=== PATIENT | female | born 1955 | race Caucasian/White ===

== ENCOUNTER 2019-08-01 12:52 | Emergency (ER) | payer MEDICARE ==
--- OUTSIDE RECORDS SUMMARY | 2019-08-01 13:01 | XMS REPORT | Continuity of Care Document ---
:1955 External Reference #:[id number] Author Name Tammie Guy NP (transmitted by agent of provider Wendy Dhillon) Address [address] [address] Care Team Providers Name Role Phone Mitra Bah MD - Family Medicine Care Team Information Customer Service Technician Problems Active Problems Provider Date Disturbance in sleep behavior Ira Lima MD Onset: 02/16/2016 Chronic respiratory failure Ira Lima MD Onset: 02/16/2016 Obesity Ira Lima MD Onset: 02/16/2016 Dyspnea Ira Lima MD Onset: 02/16/2016 Anemia Ira Lima MD Onset: 02/16/2016 Hypoxemia Ira Lima MD Onset: 05/06/2016 Social History Type Date Description Comments Sex Unknown Tobacco Use Start: Unknown Quit January ETOH Use Denies alcohol use Tobacco Use Start: Unknown End: Patient is a former Unknown smoker Recreational Drug Use Denies Drug Use Smoking Was 2PPD smoker for 45 years Smoking Status Reviewed: 07/30/19 Patient is a former smoker Exercise Type/Frequency Does not exercise Allergies, Adverse Reactions, Alerts Active Allergies Reaction Severity Comments Date Penicillin hives 04/12/2014 Wellbutrin 02/16/2016 Trelegy Increased sob 10/07/2018 Medications Active Medications SIG Qnty Indications Ordering Date Provider Oxy Mask Pls provide pt 2units R09.02 Ira Lima, 06/23/2019 with Oxy mask Mucinex 1 tablet every 12 30tabs J44.1 Joanne 06/01/2019 600mg Tablets hours as needed YODIT Elise ER 12HR Oxygen please provide 1units J44.9 Joanne 12/24/2018 [facility] portable o2 YODIT Elise concentrator, pls use o2 at 2-3L/min at rest and 4L with exertion Breo Ellipta 1 puff inhaled 60units Ira Lima, 10/26/2018 daily 100-25mcg/Inh Aerosol Digox 1 by mouth six 90tabs Tammie Guy, 08/14/2018 250mcg Tablets days a week [employer] OPERATIONS ASSOCIATE Flutter use as instructed 1units J43.9 Ira Lima, 11/21/2016 Device twice a day Metoprolol Tartrate 1/2 by mouth twice 90tabs Celio Palmer 08/23/2016 a day Jayla Velez 25mg Tablets Vitamin B12 1 by mouth twice a Unknown 05/03/2016 Tablets day Senna-S 2 by mouth every Unknown 02/15/2016 8.6-50mg night at bedtime Tablets Ventolin HFA 2 puffs by mouth 24gm Joanne 02/15/2016 four times a day YODIT Elise 108(90Base) mcg/Act as needed Aerosol Paroxetine HCL 1 tablet by mouth Unknown 40mg twice daily Tablets Myrbetriq 1 Tablet by mouth Unknown 25mg daily Tablets ER 24HR Azelastine HCL 2 sprays each Unknown (Nasal) nostril twice Solution daily. Unsure of strength Cetirizine 1 tablet by mouth Unknown Tablets every hs Unsure of dose Trazodone HCL 1-3 tablets by Unknown 50mg mouth at hs Tablets Clonazepam 2 tabs 3x daily as Unknown 1mg needed Tablets Dispers Esomeprazole 1 by mouth every Unknown 40mg day Capsules DR Albuterol Sulfate 1 vial via 225ml Ira Janie, nebulizer 4 times (2.5mg/3ML) 0.083% daily as needed Nebulizer History Medications Prednisone 2 tab daily 21tabs J44.1 Joanne 06/01/2019 - 5mg Tablets for 1 week, YODIT Elise 06/22/2019 then 1 tab daily for 1 week Doxycycline 1 tab twice 14tabs J44.1 Joanne 06/01/2019 - Monohydrate daily for 1 Gosia, [employer]PERATIONS ASSOCIATE 06/22/2019 100mg week Tablets Medications Administered in Office Medication SIG Qnty Indications Ordering Provider Date Inj, Regadenoson, 0.1 MG Georges Peck M.D. 04/12/2016 Injection Inj, Regadenoson, 0.1 MG LUIS A Lombardo 04/12/2016 Injection Technetium TC 99M TetrofosmGeorges valencia M.D. 04/12/2016 Per Unit Dose Up To 40 Millicuries Injection Technetium TC 99M TetrofosminGretchen PA 04/12/2016 Per Unit Dose Up To 40 Millicuries Injection Depomedrol 80MG Brock Houston M.D. 06/21/2014 Injection Immunizations Description No Information Available Vital Signs Date Vital Result Comment 07/30/2019 2:56pm Height 60 inches 5'0" Weight 165.12 lb with shoes Heart Rate 82 /min left radial BP Systolic Sitting 140 mmHg ule reg cuff BP Diastolic Sitting 72 mmHg ule reg cuff O2 % BldC Oximetry 943 % BMI (Body Mass Index) 32.2 kg/m2 Ejection Fraction 60-65% 10/28/2018 Echocardiogram 06/23/2019 10:35am Height 60 inches 5'0" Weight 163.38 lb Heart Rate 90 /min BP Systolic Sitting 138 mmHg Lue reg cuff BP Diastolic Sitting 80 mmHg Lue reg cuff Respiratory Rate 20 /min O2 % BldC Oximetry 94 % O2 set to 3 pulse, Poc, via nasal canula BMI (Body Mass Index) 31.9 kg/m2 Results Test Date Facility Test Result H/L Range Note Comp Metabolic 06/01/2019 [facility] Sodium 138 mmol/L Normal 135-145 Panel [address] [place] [address] [phone] Potassium 4.4 mmol/L Normal 3.5-5.0 Chloride 98 mmol/L Low 101-111 Co2 Carbon Dioxide 31 mmol/L Normal 22-32 Anion Gap 9 mmol/L Normal 2-11 Glucose 133 mg/dL High 70-100 Blood Urea Nitrogen 21 mg/dL Normal 6-24 Creatinine 0.67 mg/dL Normal 0.51-0.95 BUN/Creatinine Ratio 31.3 High 8-20 Calcium 10.1 mg/dL Normal 8.6-10.3 Total Protein 7.1 g/dL Normal 6.4-8.9 Albumin 4.2 g/dL Normal 3.2-5.2 Globulin 2.9 g/dL Normal 2-4 Albumin/Globulin Ratio 1.4 Normal 1-3 Total Bilirubin 0.30 mg/dL Normal 0.2-1.0 Alkaline Phosphatase 86 U/L Normal 34-104 Alt 42 U/L Normal 7-52 Ast 31 U/L Normal 13-39 Egfr Non- 88.6 >60 Egfr 107.2 >60 1 Laboratory test 06/01/2019 [facility] Digoxin 0.4 ng/ml Low 0.8-2.0 [address] [place] [address] [phone] B-Type Natriuretic Peptide BNP 19 pg/mL <=100 3 1 Because ethnic data is not always readily available, this report includes an eGFR for both -Americans and non- Americans. The National Kidney Disease Education Program (NKDEP) does not endorse the use of the MDRD equation for patients that are not between the ages of 18 and 70, are , have extremes of body size, muscle mass, or nutritional status, or are non- or non-. According to the National Kidney Foundation, irrespective of diagnosis, the stage of the disease is based on the level of kidney function: Stage Description GFR(mL/min/1.73 m(2)) 1 Kidney damage with normal or decreased GFR 90 2 Kidney damage with mild decrease in GFR 60-89 3 Moderate decrease in GFR 30-59 4 Severe decrease in GFR 15-29 5 Kidney failure <15 (or dialysis) 2 Digoxin trough level Copy Result to: MITRA BAH ([id number]) 3 Digoxin trough level Copy Result to: MITRA BAH ([id number]) Procedures Date Code Description Status 05/31/2019 62241 EKG Tracing & Interpretation Completed Medical Devices Description No Information Available Encounters Type Date Location Provider Dx Diagnosis Office Visit 06/23/2019 Pulmonology Vishnu Hanson.9 Chronic obstructive 10:30a [facility] pulmonary disease, Composition [employer] unspecified R09.02 Hypoxemia Office Visit 06/01/2019 [facility] Mares.1 Chronic 9:00a [facility] YODIT Elise obstructive Composition [employer] pulmonary disease w (acute) exacerbation R09.02 Hypoxemia G47.33 Obstructive sleep apnea (adult) (pediatric) Office Visit 05/31/2019 Saud Tammie I47.1 Supraventricular 2:30p Cardiology YODIT Guy tachycardia J44.9 Chronic obstructive pulmonary disease, unspecified Z79.899 Other alf (current) drug therapy G47.33 Obstructive sleep apnea (adult) (pediatric) Assessments Date Code Description Provider 07/30/2019 I47.1 Supraventricular tachycardia Tammie Guy NP 06/23/2019 J44.9 Chronic obstructive pulmonary disease, Ira Lima MD unspecified 06/23/2019 R09.02 Hypoxemia Ira Lima MD 06/01/2019 J44.1 Chronic obstructive pulmonary disease Joanne Elise NP with (acute) exacerbat 06/01/2019 R09.02 Hypoxemia Joanne Elise NP 06/01/2019 G47.33 Obstructive sleep apnea (adult) Joanne Elise NP (pediatric) 05/31/2019 R94.31 Abnormal electrocardiogram [ECG] [EKG] Celio Velez M.D. 05/31/2019 I47.1 Supraventricular tachycardia Celio Velez M.D. 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 Velez in 4-6 months.Recommendations:Please get non fasting labs sometime in October. Remember to hold Digoxin the day you get labs drawn. Functional Status Description No Information Available Mental Status Description No Information Available Referrals Description No Information Available
[2019-08-01 14:19] LABS: ABS Basophils 0.1 10^3/ul (0-0.2); ABS Eosinophils 0.4 10^3/ul (0-0.6); ABS Lymphocytes 2.2 10^3/ul (1.0-4.8); ABS Monocytes 0.8 10^3/ul (0-0.8); ABS Neutrophils 6.1 10^3/ul (1.5-7.7); Eosinophil % 4.4 %; Hematocrit 38 % (35-47); Hemoglobin 12.5 g/dL (12.0-16.0); Lymphocyte % 22.8 %; Mean Corpuscular HGB Conc 33 g/dL (31-36); Mean Corpuscular Hemoglobin 30 pg (27-31); Mean Corpuscular Volume 90 fL (80-97); Mean Platelet Volume 8.7 fL (7.4-10.4); Platelet Count 305 10^3/uL (150-450); Red Blood Count 4.15 10^6 /uL (3.70-4.87); Red Cell Distribution Width 14 % (10-15); White Blood Count 9.6 10^3/uL (3.5-10.8)
--- NOTE | 2019-08-01 14:28 | ED ---
GI/ HPI - HPI Summary HPI Summary: This pt is a 64 Y/O F presenting to [facility] accompanied by her daughter with a CC of constipation since Friday07/26/19 and has been unable to produce any BMs since. She states that she had one BM yesterday 07/31/19 and produced a very hard stool. She states that she has had intermittent abdominal pain since the onset which is rated a 1/10 and feels more like pressure. She states that she has had nausea. She has had a decreased appetite. She denies any fevers, chills , vomiting, and diarrhea. She has no aggravating or alleviating factors. She has a PMHx of Barrets disease, COPD, and GERD. She states that she has taken the following medications while at home: 3 fleet enemas, 3 milk of mag, 2 Sennas , one glycerin suppository. - History of Current Complaint Chief Complaint: EDConstipation Time Seen by Provider: 08/01/19 13:58 Stated Complaint: BOWEL TROUBLES PER PT Hx Obtained From: Patient Onset/Duration: Started Weeks Ago - 1, Still Present, Worse Since - 07/31/19 Timing: Constant Severity: Moderate Current Severity: Moderate Pain Intensity: 1 Location of Pain: Diffuse Associated Signs and Symptoms: Positive: Nausea, Constipation, Abdominal Pain - intermittent, Other: - Decreased appetite. Negative: Vomiting, Diarrhea, Fever , Chills Aggravating Factor(s): Nothing Alleviating Factor(s): Nothing - Allergy/Home Medications Allergies/Adverse Reactions: Allergies Allergy/AdvReac Type Severity Reaction Status Date / Time bupropion [From Wellbutrin] Allergy Swelling Verified 08/01/19 13:02 Of Face,Lips,& Throat Penicillins Allergy Hives Verified 08/01/19 13:02 PMH/Surg Hx/FS Hx/Imm Hx Previously Healthy: Yes Endocrine/Hematology History: Denies: Hx Diabetes, Hx Systemic Lupus Erythematosus Cardiovascular History: Denies: Hx Congestive Heart Failure, Hx Hypertension, Hx Pacemaker/ICD Respiratory History: Reports: Hx Chronic Obstructive Pulmonary Disease (COPD), Hx Sleep Apnea - ??- BUT HAS NEVER BEEN TESTED GI History: Reports: Hx Gastroesophageal Reflux Disease - ON MEDICATION FOR, Hx Hiatal Hernia, Other GI Disorders - BARRETTS ESOPHAGUS History: Denies: Hx Dialysis, Hx Renal Disease Musculoskeletal History: Denies: Hx Rheumatoid Arthritis Sensory History: Reports: Hx Contacts or Glasses - GLASSES Denies: Hx Hearing Aid Opthamlomology History: Reports: Hx Contacts or Glasses - GLASSES Psychiatric History: Reports: Hx Anxiety - ROUTINE AND PRN MEDICATION FOR, Hx Depression - ROUTINE AND PRN MEDICATION FOR Denies: Hx Panic Disorder - Cancer History Hx Chemotherapy: No - Surgical History Surgery Procedure, Year, and Place: Hiatal hernia repair. BLADDER REPAIR. CARPAL TUNNEL RELEASE BILATERAL. RIGHT SHOULDER 11/25/14, HYSTERECTOMY Endoscopy 01/03/16 @ [facility] Hx Anesthesia Reactions: No Infectious Disease History: No Infectious Disease History: Denies: Traveled Outside the [place] in Last 30 Days - Family History Known Family History: Positive: Respiratory Disease - Social History Occupation: Retired Lives: With Family Alcohol Use: None Hx Substance Use: No Substance Use Type: Reports: None Hx Tobacco Use: Yes Smoking Status (MU): Former Smoker Type: Cigarettes Amount Used/How Often: UP TO 2 PPD Length of Time of Smoking/Using Tobacco: January 27 2016 Quit Review of Systems Negative: Fever, Chills Positive: Abdominal Pain - intermittent, Nausea, Other - POSITIVE: constipation . Negative: Vomiting, Diarrhea Positive: Other - Decresed appetite All Other Systems Reviewed And Are Negative: Yes Physical Exam - Summary Physical Exam Summary: Constitutional: Well-developed, Well-nourished, Alert. (-) Distressed Skin: Warm, Dry HENT: Normocephalic; Atraumatic Eyes: Conjunctiva normal Neck: Musculoskeletal ROM normal neck. (-) JVD, (-) Stridor, (-) Nuchal rigidity Cardio: Rhythm regular, rate normal, Heart sounds normal; Intact distal pulses; Radial pulses are 2+ and symmetric. (-) Murmur Pulmonary/Chest wall: Effort normal. (-) Respiratory distress, (-) Wheezes, (-) Rales Abd: Soft, (-) tenderness, ventral hernia, (+) Distension, (-) Guarding, (-) Rebound Musculoskeletal: (-) Edema Lymph: (-) Cervical adenopathy Neuro: Alert, Oriented x3 Psych: Mood and affect Normal Triage Information Reviewed: Yes Vital Signs On Initial Exam: Initial Vitals Temp Pulse Resp BP Pulse Ox 98.2 F 83 20 113/53 91 08/01/19 12:57 08/01/19 12:57 08/01/19 12:57 08/01/19 12:57 08/01/19 12:57 Vital Signs Reviewed: Yes Diagnostics - Vital Signs Vital Signs Temp Pulse Resp BP Pulse Ox 08/01/19 12:57 98.2 F 83 20 113/53 91 - Laboratory Lab Results: Lab Results 08/01/19 Range/Units 14:05 WBC 9.6 (3.5-10.8) 10^3/uL RBC 4.15 (3.70-4.87) 10^6 /uL Hgb 12.5 (12.0-16.0) g/dL Hct 38 (35-47) % MCV 90 (80-97) fL MCH 30 (27-31) pg MCHC 33 (31-36) g/dL RDW 14 (10-15) % Plt Count 305 (150-450) 10^3/uL MPV 8.7 (7.4-10.4) fL Neut % (Auto) 64.0 % Lymph % (Auto) 22.8 % Noble % (Auto) 7.9 % Eos % (Auto) 4.4 % Baso % (Auto) 0.9 % Absolute Neuts (auto) 6.1 (1.5-7.7) 10^3/ul Absolute Lymphs (auto) 2.2 (1.0-4.8) 10^3/ul Absolute Monos (auto) 0.8 (0-0.8) 10^3/ul Absolute Eos (auto) 0.4 (0-0.6) 10^3/ul Absolute Basos (auto) 0.1 (0-0.2) 10^3/ul Absolute Nucleated RBC 0.0 10^3/ul Nucleated RBC % 0.0 Result Diagrams: 08/01/19 14:05 08/01/19 14:05 Lab Statement: Any lab studies that have been ordered have been reviewed, and results considered in the medical decision making process. - CT CT A/P CT Interpretation Completed By: Radiologist Summary of CT Findings: Negative for bowel obstruction. Potential gastroenteritis given fluid levels at the colon. Hepatosteatosis. Small fat- containing midline supraumbilical ventral hernia with mild edema. Small RIGHT. Spigelian fat-containing hernia without significant inflammatory change. ED physician has reveiwed this report. Re-Evaluation - Re-Evaluation First Eval Change: Improved - CT the abdomen and pelvis shows no obstruction, discussed with patient. Small ventral hernia w edema but no abdominal tenderness over ventral hernia. Low suspicion for incarceration. She states she feels well and feels comfortable going home. GIGU Course/Dx - Course Course Of Treatment: 64-year-old female sent in by primary care doctor concern for obstruction. On exam patient is well-appearing, mildly distended abdomen. Given the patient had normal bowel movements lower suspicion for obstruction, but given his abnormal for her we'll check a CT of the abdomen and pelvis with contrast and labs. - Diagnoses Provider Diagnoses: Constipation Discharge ED - Sign-Out/Discharge Documenting (check all that apply): Patient Departure - discharge Patient Received Moderate/Deep Sedation with Procedure: No - Discharge Plan Condition: Stable Disposition: HOME Patient Education Materials: Constipation (ED) Referrals: Coy Bah MD [Primary Care Provider] - Additional Instructions: You were seen in the emergency department for constipation. Your CT scan did not show any evidence of bowel obstruction. If any studies were not completed at the time of discharge you will be called with the relevant results. Please follow up with your primary care doctor in next 2-3 days and return to emergency department for worsening or concerning symptoms. It was a pleasure taking care of you today. - Billing Disposition and Condition Condition: STABLE Disposition: Home - Attestation Statements Document Initiated by Favian: Yes Documenting Scribe: Reji Centeno Provider For Whom Favian is Documenting (Include Credential): Kelli Moore MD Scribe Attestation: I, Reji Centeno, scribed for Kelli Moore MD on 08/01/19 at 1913. Scribe Documentation Reviewed: Yes Provider Attestation: The documentation as recorded by the Reji tee accurately reflects the service I personally performed and the decisions made by me, Kelli Moore MD Status of Scribe Document: Viewed
[2019-08-01 14:31] LABS: Albumin 3.9 g/dL (3.2-5.2); Albumin/Globulin Ratio 1.4 (1-3); BUN/Creatinine Ratio 16.7 (8-20); Calcium 8.8 mg/dL (8.6-10.3); EGFR African American 82.6 (>60); EGFR Non-African American 68.3 (>60); Globulin 2.8 g/dL (2-4); Potassium 4.4 mmol/L (3.5-5.0); Total Bilirubin 0.2 mg/dL (0.2-1.0); Total Protein 6.7 g/dL (6.4-8.9)
[2019-08-01] MEDS ORDERED: Iohexol 300* (CONTRAST) 10 ML SDV IV ONE (15:32)
[2019-08-01 17:14] VITALS: BP 117/76
== END 2019-08-01 17:13 | disposition home or self-care (01) ==
LOC: ED 12:52
DX: K59.00 Constipation, unspecified (principal); K22.70 Barrett's esophagus without dysplasia; J44.9 Chronic obstructive pulmonary disease, unspecified; K21.9 Gastro-esophageal reflux disease without esophagitis; K43.9 Ventral hernia without obstruction or gangrene; K46.9 Unspecified abdominal hernia without obstruction or gangrene; Z87.891 Personal history of nicotine dependence; Z90.710 Acquired absence of both cervix and uterus; Z88.0 Allergy status to penicillin; Z88.8 Allergy status to other drugs, medicaments and biological substances
CPT/HCPCS: 36415; 74177; 80053; 85025; 99282; Q9967

== ENCOUNTER 2021-03-06 18:52 | Observation (INO) ==
[2021-03-06 23:04] LABS: ABS Basophils 0.1 10^3/ul (0-0.2); ABS Eosinophils 0.5 10^3/ul (0-0.6); ABS Lymphocytes 3.9 10^3/ul (1.0-4.8); ABS Monocytes 0.8 10^3/ul (0-0.8); ABS Neutrophils 7.7 10^3/ul (1.5-7.7); Hematocrit 37 % (35-47); Hemoglobin 11.8 g/dL (12.0-16.0); Lymphocyte % 29.9 %; Mean Corpuscular HGB Conc 32 g/dL (31-36); Mean Corpuscular Hemoglobin 30 pg (27-31); Mean Corpuscular Volume 91 fL (80-97); Mean Platelet Volume 9.2 fL (7.4-10.4); Platelet Count 358 10^3/uL (150-450); Red Blood Count 4.01 10^6 /uL (3.70-4.87); Red Cell Distribution Width 13 % (10-15); White Blood Count 13.1 10^3/uL (3.5-10.8)
[2021-03-06 23:14] LABS: ALT 31 U/L (7-52); Albumin 4.2 g/dL (3.2-5.2); Albumin/Globulin Ratio 1.3 (1-3); Alkaline Phosphatase 66 U/L (34-104); Blood Urea Nitrogen 18 mg/dL (6-24); CO2 Carbon Dioxide 29 mmol/L (22-32); Calcium 9.7 mg/dL (8.6-10.3); Chloride 98 mmol/L (101-111); EGFR African American 108.4 (>60); EGFR Non-African American 89.6 (>60); Globulin 3.3 g/dL (2-4); Glucose 92 mg/dL (70-100); Sodium 135 mmol/L (135-145); Total Protein 7.5 g/dL (6.4-8.9)
[2021-03-06 23:31] LABS: Anion Gap 8 mmol/L (2-11); Potassium 4.3 mmol/L (3.5-5.0)
[2021-03-06 23:32] LABS: AST 27 U/L (13-39)
[2021-03-06 23:34] LABS: Troponin I 0.08 ng/mL (<0.03)
[2021-03-07 00:54] LABS: Urine Appearance Clear; Urine Bilirubin Negative (Negative); Urine Blood Negative (Negative); Urine Color Straw; Urine Glucose Negative (Negative); Urine Ketones Negative (Negative); Urine Nitrite Negative (Negative); Urine Protein Negative (Negative); Urine Urobilinogen Negative (Negative)
[2021-03-07 02:10] LABS: Magnesium 1.8 mg/dL (1.9-2.7)
[2021-03-07] MEDS ORDERED: Magnesium Sulfate 2 gm BAG 2 GM/50 ML BAG IVPB ONE (03:12)
[2021-03-07] MEDS ORDERED: Albuterol/Ipratropium NEB.SOL (2.5/0.5 MG) 3 ML NEB.SOLN INH PRN (03:20)
[2021-03-07 03:45] LABS: HDL Cholesterol 36.1 mg/dL
[2021-03-07 03:47] LABS: Digoxin 0.8 ng/ml (0.8-2.0)
[2021-03-07 04:03] LABS: TSH Ultra Thyroid Stim Horm 2.36 mcIU/mL (0.34-5.60)
[2021-03-07] MEDS ORDERED: Albuterol HFA INHALER 8 gm MDI INH PRN (04:32)
[2021-03-07 05:27] LABS: Calcium 9.2 mg/dL (8.6-10.3); EGFR African American 112.3 (>60); EGFR Non-African American 92.8 (>60)
[2021-03-07 06:30] LABS: ABS Basophils 0.1 10^3/ul (0-0.2); ABS Eosinophils 0.5 10^3/ul (0-0.6); ABS Lymphocytes 3.1 10^3/ul (1.0-4.8); ABS Monocytes 0.9 10^3/ul (0-0.8); ABS Neutrophils 6.7 10^3/ul (1.5-7.7); Eosinophil % 4.7 %; Hematocrit 37 % (35-47); Hemoglobin 11.9 g/dL (12.0-16.0); Lymphocyte % 27.4 %; Mean Corpuscular HGB Conc 33 g/dL (31-36); Mean Corpuscular Hemoglobin 30 pg (27-31); Mean Corpuscular Volume 92 fL (80-97); Mean Platelet Volume 8.6 fL (7.4-10.4); Platelet Count 330 10^3/uL (150-450); Red Blood Count 3.97 10^6 /uL (3.70-4.87); Red Cell Distribution Width 13 % (10-15); White Blood Count 11.3 10^3/uL (3.5-10.8)
[2021-03-07] MEDS: Mometasone/Formoter 200/5 MDI INH SCH ×2 (08:04→19:22)
[2021-03-07] MEDS: Enoxaparin 40 MG/0.4 ML SYR SUBCUT SCH (10:12)
[2021-03-07] MEDS: Fluticasone NASAL SPRAY 50MCG 16 gm SPRAY BTL INTRANASAL SCH ×2 (10:13→20:24)
[2021-03-07] MEDS: CMCS: Solifenacin 5 mg TAB (NF) PO SCH (10:13)
[2021-03-07] MEDS: Venlafaxine XR 75 mg PO SCH ×2 (10:13→20:21)
[2021-03-07] MEDS ORDERED: Senna TAB 8.6 mg TAB PO SCH (21:00)
[2021-03-08] MEDS: Mometasone/Formoter 200/5 MDI INH SCH (07:45)
[2021-03-08 08:09] LABS: Calcium 9.2 mg/dL (8.6-10.3); EGFR African American 110.3 (>60); EGFR Non-African American 91.2 (>60); Potassium 4.2 mmol/L (3.5-5.0)
[2021-03-08] MEDS ORDERED: Regadenoson 0.4 MG/5 ML SYRINGE ONE (08:40)
[2021-03-08] MEDS ORDERED: Aminophylline 25 MG/ML VIAL ONE (08:40)
[2021-03-08 08:54] LABS: ABS Basophils 0.1 10^3/ul (0-0.2); ABS Eosinophils 0.6 10^3/ul (0-0.6); ABS Lymphocytes 2.8 10^3/ul (1.0-4.8); ABS Neutrophils 6.3 10^3/ul (1.5-7.7); Eosinophil % 5.3 %; Hematocrit 34 % (35-47); Hemoglobin 11.5 g/dL (12.0-16.0); Mean Corpuscular HGB Conc 34 g/dL (31-36); Mean Corpuscular Hemoglobin 31 pg (27-31); Mean Corpuscular Volume 92 fL (80-97); Mean Platelet Volume 8.8 fL (7.4-10.4); Platelet Count 317 10^3/uL (150-450); Red Blood Count 3.72 10^6 /uL (3.70-4.87); Red Cell Distribution Width 13 % (10-15); White Blood Count 10.6 10^3/uL (3.5-10.8)
[2021-03-08] MEDS: CMCS: Solifenacin 5 mg TAB (NF) PO SCH (10:48)
[2021-03-08] MEDS: Fluticasone NASAL SPRAY 50MCG 16 gm SPRAY BTL INTRANASAL SCH (10:48)
[2021-03-08] MEDS: Venlafaxine XR 75 mg PO SCH (10:48)
[2021-03-08] MEDS: Enoxaparin 40 MG/0.4 ML SYR SUBCUT SCH (10:49)
[2021-03-08 11:30] VITALS: BP 124/46
== END 2021-03-08 12:50 | disposition home or self-care (01) ==
LOC: MEDTELE 18:52 → ED 18:52 → MEDTELE 03-07 04:45
PROVIDERS: ADMIT Internal Medicine; ATTEND Hospitalist

== ENCOUNTER 2023-10-08 05:54 | Observation (INO) ==
[~2023-10-08 05:54] MED LIST: Buffered Lidocaine 1% SYRIN 1 ml INTRADERM ONE; HYDROmorphone 1 MG/1 ML SYRINGE IV PRN; Naloxone 0.4 mg VIAL 0.4 mg/ml 1 ml VIAL IV PRN; Ondansetron 4 mg VIAL 2 MG/ML 2 ml VIAL IV PRN
[2023-10-08] MEDS ORDERED: Albuterol/Ipratropium NEB.SOL (2.5/0.5 MG) 3 ML NEB.SOLN INH ONE (06:00)
[2023-10-08] MEDS ORDERED: Albuterol/Ipratropium NEB.SOL (2.5/0.5 MG) 3 ML NEB.SOLN ONE (06:51)
[2023-10-08] MEDS ORDERED: Heparin 5000 UNITS/ML 1 mL VIAL ONE (06:51)
[2023-10-08] MEDS ORDERED: Clindamycin 900 MG/50 **NS BAG 900 MG/50 ML BAG ONE (06:51)
[2023-10-08] MEDS ORDERED: Midazolam 2 mg/2 ml VIAL 1 mg/ml 2 ml VIAL (2 mg) ONE (07:09)
[2023-10-08] MEDS ORDERED: Bupivacaine 0.5% SDV PF 30ML VIAL ONE (07:09)
[2023-10-08] MEDS ORDERED: Rocuronium 50 mg VIAL 10 mg/ml 5 ml VIAL (50 mg) ONE ×2 (07:09→09:09)
[2023-10-08] MEDS ORDERED: Propofol 10 MG/ML 20 ML BTL ONE (07:09)
[2023-10-08] MEDS ORDERED: Dexamethasone IV 4 MG/ML VIAL 1 ml VIAL ONE (07:09)
[2023-10-08] MEDS ORDERED: fentaNYL 250 mcg/5 ml 50 MCG/ML 5 ml VIAL (250 MCG) ONE (07:09)
[2023-10-08] MEDS ORDERED: Ondansetron 4 mg VIAL 2 MG/ML 2 ml VIAL ONE (07:09)
[2023-10-08] MEDS ORDERED: Lidocaine 2% PF 5 ML VIAL ONE (07:09)
[2023-10-08] MEDS ORDERED: Scopolamine 1 mg/72hr PATCH ONE (07:43)
[2023-10-08] MEDS: Lactated Ringers 1000 ml BAG 1,000 ML IV SCH (07:46)
[2023-10-08] MEDS ORDERED: KETAMINE HCL 10 MG/ML 20 ml VIAL (200 MG) ONE (07:56)
[2023-10-08] MEDS ORDERED: Phenylephrine 40 mcg/mL 10mL (400mcg) SYRINGE ONE (08:02)
[2023-10-08 08:08] LABS: Rapid COVID-19 Molecular Undetected (Undetected)
[2023-10-08] MEDS ORDERED: Albuterol HFA INHALER 8 gm MDI INH PRN (10:15)
[2023-10-08] MEDS ORDERED: Albuterol 2.5mg/3 ml (0.083%) NEB.SOLN INH PRN (10:15)
[2023-10-08] MEDS ORDERED: Ondansetron 4 mg VIAL 2 MG/ML 2 ml VIAL IV PRN (10:28)
[2023-10-08] MEDS ORDERED: fentaNYL 100 mcg/2 ml 50 MCG/ML VIAL ONE (10:36)
[2023-10-08] MEDS: fentaNYL 100 mcg/2 ml 50 MCG/ML VIAL IV PRN ×2 (10:39→10:55)
[2023-10-08] MEDS: Acetaminophen IV 1 GM/100ML 1,000 MG/100 ML BAG IV SCH ×2 (14:05→20:31)
[2023-10-08] MEDS: Heparin 5000 UNITS/ML 1 mL VIAL SUBCUT SCH (18:13)
[2023-10-08] MEDS: IPRATROPIUM BR (NF)0.06% NASAL 1 SPRAY BTL BOTH NARES SCH (20:39)
[2023-10-08] MEDS ORDERED: Polyethylene Glycol 3350 17 GM PACKET PO SCH (21:00)
[2023-10-08] MEDS ORDERED: Glycopyrrolate/Formoterol (NF) MDI INH SCH (21:00)
[2023-10-08] MEDS ORDERED: Budesonide Flexhaler 90 (NF) 90 MCG/ACT MDI INH SCH (21:00)
[2023-10-08] MEDS ORDERED: Fluticasone NASAL SPRAY 50MCG 16 gm SPRAY BTL INTRANASAL SCH (21:00)
[2023-10-08] MEDS ORDERED: Pravastatin 20 mg TAB (NF) PO SCH (21:00)
[2023-10-09] MEDS: ICOSAPENT ETHYL 1 GM CAPSULE (NF) PO SCH ×2 (00:10→08:38)
[2023-10-09] MEDS ORDERED: Mometasone 220 MCG MDI INH SCH (00:30)
[2023-10-09] MEDS: Lactated Ringers 1000 ml BAG 1,000 ML IV SCH (01:28)
[2023-10-09] MEDS: Heparin 5000 UNITS/ML 1 mL VIAL SUBCUT SCH ×2 (02:07→08:36)
[2023-10-09] MEDS: Acetaminophen IV 1 GM/100ML 1,000 MG/100 ML BAG IV SCH ×2 (02:08→08:37)
[2023-10-09] MEDS: IPRATROPIUM BR (NF)0.06% NASAL 1 SPRAY BTL BOTH NARES SCH (08:38)
[2023-10-09] MEDS ORDERED: Senna TAB 8.6 mg TAB PO SCH (09:00)
[2023-10-09] MEDS ORDERED: CMC:Solifenacin 5 mg TAB (NF) PO SCH (09:00)
[2023-10-09] MEDS ORDERED: Vitamin THERAPEUTIC TAB PO SCH (09:00)
[2023-10-09] MEDS ORDERED: Mometasone NASAL (NF) SPRAY BOTH NARES SCH (09:00)
[2023-10-09] MEDS ORDERED: LevoCETirizine 5 mg TAB (NF) PO SCH (09:00)
[2023-10-09] MEDS ORDERED: Cholecalciferol (VIT D3) 1,000 unit TAB PO SCH (09:00)
[2023-10-09] MEDS ORDERED: Tiotropium Brom/Olodaterol MDI (ACUTE) INH SCH (09:00)
[2023-10-09] MEDS ORDERED: Docusate LIQ 100 MG/10 ML UDC PO SCH (09:00)
[2023-10-09 10:11] VITALS: BP 149/74
== END 2023-10-09 10:42 | disposition home or self-care (01) ==
LOC: SSU 05:54 → OR 05:54 → SSU 20:04
PROVIDERS: ADMIT Surgery Surgical Critical Care; ATTEND Surgery Surgical Critical Care